=== PATIENT | female | born 1950 | race Caucasian/White ===

== ENCOUNTER → 2018-10-25 | Outpatient (CLI) | payer MEDICARE, OTHER ==
[~2018-10-25] MED LIST: ASPI81EC; BENAML20/5; EZET10; FAMO20 PO; LORA10ER PO; SERT100
== END | disposition home or self-care (01) ==
LOC: LAB SHORT 10:17 → LAB 10:17
DX: L66.3 Perifolliculitis capitis abscedens (principal)
CPT/HCPCS: 87070; 87205

== ENCOUNTER 2019-12-06 06:59 | Day surgery (SDC) | payer MEDICARE, OTHER ==
[~2019-12-06] VITALS: Ht 167.6 cm; Wt 63.0 kg
[~2019-12-06 06:59] MED LIST changes: +ASPI325 PO; +CENTRUM SILVER1 EAC2 PO; +Crestor20 MG PO; +SERTRALINE HCL50 MG PO
--- NOTE | 2019-12-06 08:21 | NUR ---
Ambulatory in Day Surgery. Surgical site prepped with 2% Chlorhexidine cloth wipe. History, Chart, Medications and Allergies reviewed before start of procedure.Patient confirms NPO status and agrees with scheduled surgery. Patient reports completing Chlorhexadine shower X2 prior to admission to hospital.Pre-Op teaching done. Pt verbalizes understanding.
--- NOTE | 2019-12-06 11:39 | NUR ---
DISCHARGE SUMMARY PT A&OX4, VSS, LEFT FLOOR VIA WC WITH PERSONAL POSSESSIONS INCLUDING DC PACKET AND 1 NARC SCRIPT. OUTLET MANAGER SIGNED ACKOWLEDGING PICKING UP/DRIVING HOME PT. Discharge instructions reviewed with patient. Patient verbalizes understanding. Copy given to patient to take home. Patient States Post-Procedure ride home has been arranged. IV DC'D.
== END 2019-12-06 23:09 | disposition home or self-care (01) ==
LOC: ORSCMMR 06:59 → ORD 08:45 → ORSCMMR 23:09
PROVIDERS: Surgery
PROC: BF031ZZ Plain Radiography of Gallbladder and Bile Ducts using Low Osmolar Contrast (ICD-10-PCS; principal; 2019-12-06 08:45)
PROC: 0FT44ZZ Resection of Gallbladder, Percutaneous Endoscopic Approach (ICD-10-PCS; principal; 2019-12-06 08:45)
DX: K80.11 Calculus of gallbladder with chronic cholecystitis with obstruction (principal); R10.11 Right upper quadrant pain; K66.0 Peritoneal adhesions (postprocedural) (postinfection); E78.5 Hyperlipidemia, unspecified; Z79.899 Other long term (current) drug therapy; Z79.82 Long term (current) use of aspirin
CPT/HCPCS: 74300; 88304; C1729; J0690; J1100; J2250; J2370; J2405; J2704; J2710; J3010; J7120

== ENCOUNTER 2021-12-17 18:50 | Emergency (ER) | payer MEDICARE, OTHER ==
[~2021-12-17] VITALS: Ht 167.6 cm; Wt 59.0 kg
[2021-12-17] MEDS ORDERED: Percocet 5-3251 EACH PO (22:13)
== END 2021-12-17 22:30 | disposition home or self-care (01) ==
LOC: ER 18:50
DX: S52.501A Unspecified fracture of the lower end of right radius, initial encounter for closed fracture (principal); S80.01XA Contusion of right knee, initial encounter; Z79.82 Long term (current) use of aspirin; Z88.1 Allergy status to other antibiotic agents; Z91.041 Radiographic dye allergy status; Z87.891 Personal history of nicotine dependence; Z79.899 Other long term (current) drug therapy; W18.30XA Fall on same level, unspecified, initial encounter
CPT/HCPCS: A9270

== ENCOUNTER 2024-10-18 05:36 | Day surgery (SDC) | payer MEDICARE, OTHER ==
[~2024-10-18] VITALS: Ht 167.6 cm; Wt 60.2 kg
[2024-10-18] VITALS (12 sets, daily range): BP systolic 89–137; BP diastolic 56–84
[~2024-10-18 05:36] MED LIST changes: +Diclofenac Pota50 MG PO; +LISI20 PO; +Percocet 5-3251 EACH PO
[2024-10-18] MEDS ORDERED: Ropivacaine 0.5% HCl/Pf 123.125 MG,EPINEPHrine HCL 0.25 MG,Ketorolac Tromethamine 15 MG... INFIL SCH (06:15)
[2024-10-18] MEDS ORDERED: Chlorhexidine Mouth Care 15 ML UDC MT SCH (06:15)
[2024-10-18] MEDS ORDERED: Tranexamic Acid 100 ML IV SCH (06:15)
[2024-10-18] MEDS ORDERED: Acetaminophen 500 MG Tab PO SCH ×2 (06:15→16:00)
[2024-10-18] MEDS ORDERED: CeFAZolin Sodium 2,000 MG in NS 100 ML IV SCH ×2 (06:15→16:00)
[2024-10-18] MEDS ORDERED: Lactated Ringer's 1,000 ML IV SCH ×2 (06:15→09:45)
[2024-10-18] MEDS ORDERED: OxyCODONE HCL 10 MG TABCR PO SCH (06:15)
[2024-10-18] MEDS ORDERED: CeFAZolin Sodium 2,000 MG VIAL ONE (06:49)
--- NOTE | 2024-10-18 06:56 | NUR ---
History, Chart, Medications and Allergies reviewed before start of procedure. Ambulatory in Day Surgery WITH WALKER. Pre-Op teaching done. Pt verbalizes understanding. PATIENTS STATES PARTIALS LEFT AT HOME. GLASSES GIVEN TO BEFORE SURGERY.
[2024-10-18] MEDS ORDERED: propofoL 100 ML IV ONE (07:33)
[2024-10-18] MEDS ORDERED: Midazolam HCl 1MG / ML 2ML Vial ONE (07:34)
[2024-10-18] MEDS ORDERED: Phenylephrine HCl 10mg/ml 1 ml Vial ONE (09:05)
[2024-10-18] MEDS ORDERED: Ondansetron HCl 2 MG / ML 2ML Vial ONE (09:05)
[2024-10-18] MEDS ORDERED: Phenylephrine HCl 100 MCG/ML-NS 10MLSYR (1MG/10ML) ONE (09:05)
[2024-10-18] MEDS ORDERED: Dexamethasone Sod Phos 10 MG/ML 1ML VIAL ONE (09:05)
[2024-10-18] MEDS ORDERED: Ketorolac Tromethamine 30mg Vial ONE (09:05)
[2024-10-18] MEDS ORDERED: FentaNYL Citrate 50 MCG/ML 2 ML Injection IV PRN ×2 (09:10→09:15)
[2024-10-18] MEDS ORDERED: Albuterol 2.5 MG/3 ML VIAL INH PRN (09:15)
[2024-10-18] MEDS ORDERED: Labetalol HCL 5 MG/ML 20MLVIAL IV PRN (09:15)
[2024-10-18] MEDS ORDERED: Ondansetron HCl 2 MG / ML 2ML Vial IV PRN ×2 (09:15→09:35)
[2024-10-18] MEDS ORDERED: Morphine Sulfate 4 MG/1 ML Injection IV PRN (09:15)
[2024-10-18] MEDS ORDERED: HYDROmorphone HCl/Pf 1MG SYR IV PRN ×2 (09:15→09:30)
[2024-10-18] MEDS ORDERED: ePHEDrine Sulfate 50 MG/ML 1ML Injection ONE (09:23)
[2024-10-18] MEDS ORDERED: Prochlorperazine Edisylate 10 mg Vial IV PRN (09:25)
[2024-10-18] MEDS ORDERED: Bisacodyl 10 MG Supp PR PRN (09:25)
[2024-10-18] MEDS ORDERED: Metoclopramide HCl 5MG / ML 2ML Vial IV PRN (09:30)
[2024-10-18] MEDS ORDERED: DiphenhydrAMINE HCL 25 MG Cap PO PRN (09:30)
[2024-10-18] MEDS ORDERED: Promethazine HCl 25 MG Tab PO PRN (09:30)
[2024-10-18] MEDS ORDERED: Magnesium Hydroxide Conc 10 ML UDC PO PRN (09:30)
[2024-10-18] MEDS ORDERED: OxyCODONE HCL 5 MG TAB PO PRN ×2 (09:35)
--- NOTE | 2024-10-18 10:00 | NUR ---
POST OP: PT ARRIVED TO ROOM 222 POST OP RIGHT BRITTANI. AQUACEL TO RIGHT HIP CDI AT THIS TIME. POLAR PACK IN PLACE. HELDER HOSE AND PAS TO BLE. CIRC WNL. SENSATION DULL IN BL FEET. VSS. LS CLEAR ON RA. IV INFUSING. ICE WATER AND COFFEE GIVEN. NO NAUSEA. AT BEDSIDE.
[2024-10-18] MEDS ORDERED: Ketorolac Tromethamine 15mg Vial IV SCH (12:00)
--- NOTE | 2024-10-18 12:54 | NUR ---
THERAPY: PT IN ROOM TO WORK WITH PATIENT. PT IN CHAIR. DENIES PAIN. WILL CONT TO MONITOR.
--- NOTE | 2024-10-18 14:28 | NUR ---
DISCHARGE: PT DC TO HOME AT THIS TIME WITH SPOUSE. VERBALIZED UNDERSTANDING OF INSTRUCTIONS, FOLLOW UP, PROBLEMS TO REPORT AND MEDICATIONS. PT PRE FILLED MEDICATIONS PRIOR TO SURGERY. IV DC'D WNL. PT LEFT VIA WHEELCHAIR WITH BELONGINGS. DRESSING SUPPLIES GIVEN.
[2024-10-18] MEDS ORDERED: Docusate Sodium 100 MG Cap PO SCH (21:00)
[2024-10-19] MEDS ORDERED: Sertraline HCl 50 MG Tab PO SCH (09:00)
[2024-10-19] MEDS ORDERED: Rosuvastatin Calcium 10 MG Tab PO SCH (09:00)
[2024-10-19] MEDS ORDERED: Aspirin 81 MG Chew PO SCH (09:00)
== END 2024-10-18 14:27 | disposition home or self-care (01) ==
LOC: ORSCMMR 05:36 → ORD 07:30 → ORSCMMR 07:30 → SURS 09:58 → ORSCMMR 14:27
PROVIDERS: Orthopaedic Surgery
PROC: 0SR90J9 Replacement of Right Hip Joint with Synthetic Substitute, Cemented, Open Approach (ICD-10-PCS; principal; 2024-10-18 07:30)
DX: M16.11 Unilateral primary osteoarthritis, right hip (principal); F41.9 Anxiety disorder, unspecified; E78.00 Pure hypercholesterolemia, unspecified; M79.7 Fibromyalgia; Z79.899 Other long term (current) drug therapy
CPT/HCPCS: 72170; 97110; 97116; 97162; A9270; C1713; C1776; J0171; J0690; J0735; J1100; J1885; J2250; J2371; J2405; J2704; J2795; J7120

== ENCOUNTER 2024-12-27 08:45 | Day surgery (SDC) | payer MEDICARE, OTHER ==
[2024-12-27] VITALS (11 sets, daily range): BP systolic 85–123; BP diastolic 47–74
[~2024-12-27] VITALS: Ht 167.6 cm; Wt 58.8 kg
[2024-12-27] MEDS ORDERED: Ropivacaine 0.5% HCl/Pf 123.125 MG,EPINEPHrine HCL 0.25 MG,Ketorolac Tromethamine 15 MG... INFIL SCH (09:05)
[2024-12-27] MEDS ORDERED: Tranexamic Acid 100 ML IV SCH (09:05)
[2024-12-27] MEDS ORDERED: CeFAZolin Sodium 2,000 MG in NS 100 ML IV SCH ×2 (09:05→18:00)
[2024-12-27] MEDS ORDERED: Chlorhexidine Mouth Care 15 ML UDC MT SCH (09:05)
--- NOTE | 2024-12-27 09:56 | NUR ---
Ambulatory in Day Surgery WITH STEADY GAIT, ABLE TO STAND ON SCALE AND USE RESTROOM INDEPENDENTLY. SPOUSE AT BEDSIDE DURING PRE OP ADMISSION. History, Chart, Medications and Allergies reviewed before start of procedure. Pre-Op teaching done. Pt verbalizes understanding. PT AND SPOUSE DENY ANY FURTHER QUESTIONS. Patient States Post-Procedure ride home has been arranged WITH SPOUSE. ALL BELONGINGS PLACED UNDER GURN IN PT BELONGING BAG. GLASSES REMOVED AND PLACED IN PACU WITH PT WARRANTY COORDINATOR BAG. WARM BLANKET PROVIDED, CALL LIGHT IN REACH. PT HAS BEEN UPDATED ON DELAY IN OR DUE TO PREVIOUS PROCEDURES RUNNING LONG. PT DENIES ANY FURTHER NEEDS AT THIS TIME.
[2024-12-27] MEDS ORDERED: Midazolam HCl 1MG / ML 2ML Vial ONE (11:50)
[2024-12-27] MEDS ORDERED: Ondansetron HCl 2 MG / ML 2ML Vial IV PRN ×2 (12:20→13:50)
[2024-12-27] MEDS ORDERED: Metoclopramide HCl 5MG / ML 2ML Vial IV PRN (12:20)
[2024-12-27] MEDS ORDERED: Magnesium Hydroxide Conc 10 ML UDC PO PRN (12:25)
[2024-12-27] MEDS ORDERED: HYDROmorphone HCl/Pf 1MG SYR IV PRN ×2 (12:25→13:50)
[2024-12-27] MEDS ORDERED: Labetalol HCL 5 MG/ML 4ML Injection (Single Dose) IV PRN (13:50)
[2024-12-27] MEDS ORDERED: FentaNYL Citrate 50 MCG/ML 2 ML Injection IV PRN ×2 (13:50)
--- NOTE | 2024-12-27 14:45 | NUR ---
PT ARRIVED TO RM 219 FROM PACU IN BED. NUMB FROM HIPS DOWN. DRESSING TO LLE CDI. POLAR PACK IN PLACE. LCA. HRR. WATER AND JELLO PROVIDED. ORIENTED TO USE OF CALL LIGHT.
--- NOTE | 2024-12-27 17:14 | NUR ---
AMBULATING IN [facility]ATES W/VICTOR MANUEL Martines PT.
[2024-12-27] MEDS ORDERED: ASPI81CH PO (17:26)
[2024-12-27] MEDS ORDERED: Ketorolac Tromethamine 15mg Vial IV SCH (18:00)
--- NOTE | 2024-12-27 18:13 | NUR ---
pt eager to dc CLEARED BY THERAPY. TOLERATING PO. VSS. VOIDED. PT EAGER TO DC HOME.
--- NOTE | 2024-12-27 18:38 | NUR ---
DISCHARGED REVIEWED DC INSTRUCTIONS W/PT; VERBALIZED UNDERSTANDING. PT MET CRITERIA FOR DC. LEFT UNIT IN WC W/POSSESSIONS AND DC PAPERWORK IN HAND, ACCOMPANIED BY SPOUSE.
== END 2024-12-27 18:38 | disposition home or self-care (01) ==
LOC: ORSCMMR 08:45 → ORD 10:00 → ORSCMMR 10:00 → SURS 14:36 → ORSCMMR 18:38
PROVIDERS: Orthopaedic Surgery
PROC: 0SRD0JA Replacement of Left Knee Joint with Synthetic Substitute, Uncemented, Open Approach (ICD-10-PCS; principal; 2024-12-27 10:00)
DX: M17.12 Unilateral primary osteoarthritis, left knee (principal); Z96.641 Presence of right artificial hip joint; F41.9 Anxiety disorder, unspecified; E78.00 Pure hypercholesterolemia, unspecified; Z79.899 Other long term (current) drug therapy
CPT/HCPCS: 73560-LT; 97116; 97161; 97530; A9270; C1713; C1776; J0165; J0690; J0735; J1885; J2250; J2704; J2795; J7120

== ENCOUNTER 2025-01-12 23:46 | Emergency (ER) | payer MEDICARE, OTHER ==
[~2025-01-12] VITALS: Ht 160 cm; Wt 63.5 kg
[~2025-01-12 23:46] MED LIST changes: +ASPI81CH PO
[2025-01-13] MEDS ORDERED: Metoclopramide HCl 5MG / ML 2ML Vial IV ONE (00:15)
[2025-01-13] MEDS ORDERED: DiphenhydrAMINE HCl 50 MG/ML 1ML Vial IV ONE ×2 (00:20→07:15)
[2025-01-13] MEDS ORDERED: DiphenhydrAMINE HCl 50 MG/ML 1ML Vial ONE (00:26)
[2025-01-13] MEDS ORDERED: Metoclopramide HCl 5MG / ML 2ML Vial ONE (00:26)
[2025-01-13 02:56] LABS: BASOPHILS ABSOLUTE AUTO 0.04 K/mm3 (0.00-0.23); BASOPHILS PERCENT AUTO 1 % (0-2); EOSINOPHILS ABSOLUTE AUTO 0.02 K/mm3 (0.00-0.68); EOSINOPHILS PERCENT AUTO 0 % (0-6); Hematocrit 36.3 % (33.0-51.0); Hemoglobin 11.9 g/dL (11.5-16.0); IMMATURE GRAN ABSOLUTE AUTO 0.02 K/mm3 (0.00-0.10); IMMATURE GRAN PERCENT AUTO 0 % (0-1); LYMPHOCYTES ABSOLUTE AUTO 1.90 K/mm3 (0.84-5.20); LYMPHOCYTES PERCENT AUTO 23 % (21-46); MONOCYTES ABSOLUTE AUTO 0.43 K/mm3 (0.16-1.47); MONOCYTES PERCENT AUTO 5 % (4-13); Mean Corpuscular HGB Conc 32.8 g/dL (31.5-36.5); Mean Corpuscular Volume 90 fL (80-100); NEUTROPHILS ABSOLUTE AUTO 5.76 K/mm3 (1.96-9.15); NEUTROPHILS PERCENT AUTO 71 % (41-73); NRBC ABSOLUTE 0.00 K/mm3 (0.00-0.02); NRBC Auto 0.0 /100 WBC (0.0-0.2); Platelet Count 890 K/mm3 (150-400); RDW Coefficient Variation 14.3 % (11.7-14.2); RDW Standard Deviation 46.4 fL (35.1-46.3)
[2025-01-13 03:08] LABS: Alanine Aminotransfer (ALT/SGP 22.0 U/L (12-78); Albumin, Blood 3.2 g/dL (3.4-5.0); Albumin/Globulin Ratio 0.8 (0.8-1.8); Anion Gap 13.0 mmol/L (3-11); Aspartate Aminotrans (AST/SGOT 24.0 U/L (12-37); Bilirubin, Total 0.5 mg/dL (0.1-1.0); Blood Urea Nitrogen 19.0 mg/dL (8-24); CO2, Blood 23.0 mmol/L (21-32); Calcium, Blood 10.0 mg/dL (8.5-10.1); Chloride, Blood 105.0 mmol/L (98-108); Creatinine, Blood 0.62 mg/dL (0.40-1.00); Globulin, Blood 4.1 g/dL (2.2-4.0); Glucose, Blood 163.0 mg/dL (70-99); Potassium, Blood 3.7 mmol/L (3.5-5.5); Sodium, Blood 137.0 mmol/L (136-145); Total Protein, Blood 7.3 g/dL (6.4-8.2)
[2025-01-13] MEDS ORDERED: Dexamethasone Sod Phos 10 MG/ML 1ML VIAL IV ONE (07:10)
[2025-01-13] MEDS ORDERED: Morphine Sulfate 4 MG/1 ML Injection IV ONE (07:10)
[2025-01-13] MEDS ORDERED: Ondansetron HCl 2 MG / ML 2ML Vial IV ONE (07:10)
[2025-01-13] MEDS ORDERED: NS 1,000 ML IV SCH (07:15)
[2025-01-13 10:30] VITALS: BP 157/79
[2025-01-13] MEDS ORDERED: OMEP20ER PO (10:32)
[2025-01-13] MEDS ORDERED: PROBIOTIC1 EA13 PO (10:32)
[2025-01-13] MEDS ORDERED: DOCU100 PO (10:32)
== END 2025-01-13 11:00 | disposition home or self-care (01) ==
LOC: ER 23:46
PROVIDERS: Student in an Organized Health Care Education/Training Program
DX: G89.18 Other acute postprocedural pain (principal); R10.33 Periumbilical pain; Z88.8 Allergy status to other drugs, medicaments and biological substances; Z79.82 Long term (current) use of aspirin; Z79.899 Other long term (current) drug therapy
CPT/HCPCS: 74177; 80053; 83690; 85025; 93005; 93010; 96361; 96374-59; 96375; 96376; 99285-25; J1100; J1200; J2270; J2405; J2765; J7030; Q9967

== ENCOUNTER 2025-06-24 10:43 | Emergency (ER) | payer MEDICARE, OTHER ==
[~2025-06-24] VITALS: Ht 157.5 cm; Wt 61.2 kg
[~2025-06-24 10:43] MED LIST changes: +DOCU100 PO; +OMEP20ER PO; +PROBIOTIC1 EA13 PO
[2025-06-24 14:12] VITALS: BP 168/97
== END 2025-06-24 14:10 | disposition home or self-care (01) ==
LOC: ER 10:43
DX: S64.91XA Injury of unspecified nerve at wrist and hand level of right arm, initial encounter (principal); X58.XXXA Exposure to other specified factors, initial encounter; Z88.1 Allergy status to other antibiotic agents; Z88.8 Allergy status to other drugs, medicaments and biological substances; Z79.899 Other long term (current) drug therapy; Z79.82 Long term (current) use of aspirin; Z87.891 Personal history of nicotine dependence
CPT/HCPCS: 73110; 99283-25